=== PATIENT | male | born 1945 | race Caucasian/White ===

== ENCOUNTER 2021-06-21 16:35 | Emergency (ER) | payer MEDICARE, OTHER ==
[~2021-06-21] VITALS: Ht 182.9 cm; Wt 68.9 kg
[~2021-06-21 16:35] MED LIST: AMARYL1 MG PO; ASPIR 8181 MG PO; CRESTOR5 MG PO; GLIMEPIRIDE2 MG PO; JANUMET 50-5001 EACH PO; JANUVIA100 MG PO; LISINOPRIL5 MG PO; MAGNESIUM400 M1 PO; OMEPRAZOLE20 MG PO; SUPER B COMPLE1 EACH PO; TRAMADOL HCL50 MG PO; VALSARTAN40 MG PO; VITAMIN D1000 UNI1 PO; ZETIA10 MG PO
== END 2021-06-21 21:04 | disposition home or self-care (01) ==
LOC: ED 16:35
DX: S61.217A Laceration without foreign body of left little finger without damage to nail, initial encounter (principal); Z23 Encounter for immunization; I25.10 Atherosclerotic heart disease of native coronary artery without angina pectoris; E11.9 Type 2 diabetes mellitus without complications; I10 Essential (primary) hypertension; W29.8XXA Contact with other powered hand tools and household machinery, initial encounter; Z91.018 Allergy to other foods; Z88.2 Allergy status to sulfonamides; Z91.041 Radiographic dye allergy status; Z88.1 Allergy status to other antibiotic agents; Z88.8 Allergy status to other drugs, medicaments and biological substances; Z79.82 Long term (current) use of aspirin; Z79.899 Other long term (current) drug therapy
CPT/HCPCS: 90471; 90715; 99282-25

== ENCOUNTER 2022-07-27 05:37 | Day surgery (SDC) | payer MEDICARE, OTHER ==
[~2022-07-27] VITALS: Ht 182.9 cm; Wt 70.0 kg
[~2022-07-27 05:37] MED LIST changes: +GLYCOTROL CAPS1 EACH PO
[2022-07-27] MEDS ORDERED: HYDROCODON-ACE1 EA10 PO (07:29)
--- NOTE | 2022-07-27 07:57 | NUR ---
07/27/22 [address] Erma Henry 8154 PT ARRIVED TO PACU AWAKE AND TALKING TO RN. VSS. PLAN OF CARE DISCUSSED. 0750 PT UPDATED AND PULLING UP CAR. PT GETTING DRESS. PT UP TO BATHROOM AND DENIES CONCERNS.
--- NOTE | 2022-07-27 08:28 | NUR ---
PT TAKEN TO OR FOR SURGERY, CONNECTED WITH IS REMAINING IN RM. SHE FEELS INFORMED, NO ISSUES, SHE WILL REMAIN FOR DC. GAVE BLESSING AND WILL FOLLOW NEEDED
--- NOTE | 2022-07-27 09:23 | OR ---
[facility] [address], [place] [address] Signed DATE OF OPERATION: 07/27/2022 SURGEON: Sam Kilgore MD PREOPERATIVE DIAGNOSIS: Carpal tunnel syndrome, left. POSTOPERATIVE DIAGNOSIS: Carpal tunnel syndrome, left. PROCEDURE PERFORMED: Left carpal tunnel release. CONCESSION WORKER: None. ANESTHESIA: Luis Enrique block. TOURNIQUET TIME: 14 minutes. BRIEF HISTORY: Nuria is a 77-year-old gentleman with progressive worsening of carpal tunnel symptoms. This was confirmed with nerve conduction studies and he wished to proceed with release. DESCRIPTION OF PROCEDURE: Once consent was obtained, he was taken to the operating room after adequate anesthesia. He was left on the surgery board bed with a hand table placed next to it. The arm was prepped and draped in a standard sterile fashion after establishment of the Luis Enrique block. The carpal tunnel was approached through a 1.5 cm incision and the distal wrist crease was carried through the skin and subcutaneous tissue. The palmaris longus was identified and retracted. The transverse carpal ligament was identified under loupe magnification and was dissected free of overlying soft tissue. It was then released approximately a cm and distally to its distal extent. It was palpated using the Chromo and found to be completely released. The wound was then copiously irrigated with normal saline, closed with 3-0 nylon. A 6 mL of 0.25% plain Marcaine was used to infiltrate the wound field. The wound was then dressed with bacitracin, Adaptic, 4 x 8s, and gauze. He tolerated the procedure well. All sponge, needle, and instrument counts were correct. Electronically Signed By: SAM KILGORE MD 07/27/22 0923 PATIENT NAME: NURIA CATALAN OPERATIVE REPORT DATE OF : 47 REPORT #: [id number] PHYSICIAN: SAM KILGORE MD PCP: VIJAY JIANG MD REPORT IS CONFIDENTIAL AND NOT TO BE RELEASED WITHOUT AUTHORIZATION [address] [place], [place] [address] Signed Sam Kilgore MD BA/SASKIAL /[id number] Copies: ~ Electronically Signed By: SAM KILGORE MD 07/27/22 0923 PATIENT NAME: NURIA CATALAN OPERATIVE REPORT DATE OF : 47 REPORT #: [id number] PHYSICIAN: SAM KILGORE MD PCP: VIJAY JIANG MD REPORT IS CONFIDENTIAL AND NOT TO BE RELEASED WITHOUT AUTHORIZATION
== END 2022-07-27 08:08 | disposition home or self-care (01) ==
LOC: DS 05:37
PROVIDERS: ATTEND Specialist
PROC: 01N50ZZ Release Median Nerve, Open Approach (ICD-10-PCS; principal; 2022-07-27 07:30)
DX: G56.02 Carpal tunnel syndrome, left upper limb (principal); E11.9 Type 2 diabetes mellitus without complications; Z88.2 Allergy status to sulfonamides; Z91.041 Radiographic dye allergy status; Z91.013 Allergy to seafood; Z88.8 Allergy status to other drugs, medicaments and biological substances; Z91.018 Allergy to other foods; Z79.84 Long term (current) use of oral hypoglycemic drugs
CPT/HCPCS: J0690; J2704; J7121